=== PATIENT | male | born 1955 | race Two or more races ===

== ENCOUNTER → 2020-04-05 | Outpatient (CLI) | payer MEDICARE, MEDICAID ==
[~2020-04-05] MED LIST: ASPI81CH49 PO; CLOP75TA41 PO; GEMF600T7 PO; GLIM2TAB33 PO; IOTHALAMATE MEGLUMINE INJ 250ML BOT UR ONE; LISI-648 PO; MET50T PO
== END | disposition home or self-care (01) ==
LOC: XY 09:45
DX: K59.00 Constipation, unspecified (principal); M16.0 Bilateral primary osteoarthritis of hip; N39.0 Urinary tract infection, site not specified; R30.0 Dysuria; N40.3 Nodular prostate with lower urinary tract symptoms; R35.0 Frequency of micturition
CPT/HCPCS: 74430; Q9958